=== PATIENT | male | born 1950 | race Caucasian/White ===

== ENCOUNTER → 2016-06-12 | Outpatient (CLI) | payer MEDICARE, BC | LOC: M SMT 13:31 | PROVIDERS: ATTEND Nurse Practitioner Women's Health | DX: R97.20 Elevated prostate specific antigen [PSA] (principal) ==

== ENCOUNTER → 2017-02-19 | Outpatient (REF) | payer MEDICARE, BC ==
[2017-02-19 14:09] LABS: CORTISOL AM 11.9 UG/DL (4.3-22.4)
[2017-02-21 00:07] LABS: Lyme Disease IgG/IgM Antibodie <0.91 ISR (0.00-0.90); Lyme Disease IgM Ab Quantitati <0.80 index (0.00-0.79)
== END ==
LOC: M LAB REF 12:51
PROVIDERS: ATTEND Family Medicine
DX: R53.83 Other fatigue (principal)

== ENCOUNTER → 2017-02-26 | Outpatient (CLI) | payer MEDICARE, BC | LOC: M SMT 09:23 | PROVIDERS: ATTEND Nurse Practitioner Women's Health | DX: R97.20 Elevated prostate specific antigen [PSA] (principal); Z85.46 Personal history of malignant neoplasm of prostate ==

== ENCOUNTER 2018-03-12 19:11 | Emergency (ER) | payer MEDICARE, BC ==
[2018-03-12] MEDS ORDERED: TROPICAMIDE 0.5% OPHTH SOLN 15 ML OD (20:15)
[2018-03-12] MEDS ORDERED: TETRACAINE 0.5% OPHTH SOLN 4ML OU (20:15)
[2018-03-12] MEDS ORDERED: PHENYLEPHRINE HCL 10 % OPHTH. SOL 5ML OD (20:15)
== END 2018-03-12 21:09 | disposition home or self-care (01) ==
LOC: M ED 19:11
DX: H43.811 Vitreous degeneration, right eye (principal); Z79.899 Other long term (current) drug therapy; Z86.69 Personal history of other diseases of the nervous system and sense organs
CPT/HCPCS: 99283

== ENCOUNTER → 2018-05-27 | Outpatient (REF) | payer MEDICARE, BC ==
[~2018-05-27] MED LIST: SYNT150T PO
== END ==
LOC: M SMT 13:13
PROVIDERS: ATTEND Nurse Practitioner Women's Health
DX: Z12.5 Encounter for screening for malignant neoplasm of prostate (principal)
CPT/HCPCS: 36415; G0103

== ENCOUNTER → 2019-03-07 | Outpatient (REF) | payer MEDICARE, BC | LOC: M LAB REF 17:07 | PROVIDERS: ATTEND Family Medicine | DX: E03.9 Hypothyroidism, unspecified (principal) ==

== ENCOUNTER → 2020-03-05 | Outpatient (CLI) | payer MEDICARE, BC ==
--- NOTE | 2020-03-05 15:57 | ECGEPIP ---
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
== END ==
LOC: M EKG 14:09
PROVIDERS: ATTEND Orthopaedic Surgery
DX: Z01.810 Encounter for preprocedural cardiovascular examination (principal)

== ENCOUNTER → 2020-03-09 | Outpatient (CLI) | payer MEDICARE, BC | LOC: M LABSMTC 09:52 | PROVIDERS: ATTEND Orthopaedic Surgery | DX: Z01.812 Encounter for preprocedural laboratory examination (principal); Z20.828 Contact with and (suspected) exposure to other viral communicable diseases ==

== ENCOUNTER → 2020-03-14 | Outpatient (REF) | payer MEDICARE, BC | LOC: M LAB REF 17:18 | PROVIDERS: ATTEND Orthopaedic Surgery | DX: L72.0 Epidermal cyst (principal) ==

== ENCOUNTER → 2020-10-03 | Outpatient (CLI) | payer MEDICARE, BC ==
--- NOTE | 2020-10-03 12:33 | REP ---
INDICATION: ABN THYROID FUNCTION TEST. COMPARISON: None. TECHNIQUE: Real-time sonographic evaluation of thyroid performed. FINDINGS: Right lobe of thyroid measures 4.4 x 1.5 x 1.5 cm, left lobe 3.5 x 1.4 x 1.5 cm. There is diffuse heterogeneous echotexture bilaterally. No discrete cystic or solid nodule is seen. IMPRESSION: Diffuse heterogeneous echotexture with no cystic or solid nodule. No thyromegaly. <Electronically signed by Tristen Hood > 10/03/20 [id number]
== END ==
LOC: M RAD 11:19
PROVIDERS: ATTEND Family Medicine
DX: R94.6 Abnormal results of thyroid function studies (principal)

== ENCOUNTER → 2020-10-25 | Outpatient (REF) | payer MEDICARE, BC | LOC: M LAB REF 12:21 | PROVIDERS: ATTEND Family Medicine | DX: E03.9 Hypothyroidism, unspecified (principal) ==

== ENCOUNTER → 2021-03-26 | Outpatient (REF) | payer MEDICARE, BC | LOC: M LAB REF 16:58 | PROVIDERS: ATTEND Family Medicine | DX: E03.9 Hypothyroidism, unspecified (principal) ==

== ENCOUNTER → 2021-04-25 | Outpatient (CLI) | payer MEDICARE, BC ==
[2021-05-01 21:07] LABS: FREE T4 BY DIALYSIS DIRECT 1.3 ng/dL (.); THRYOGLOBULIN ANTIBODIES (ATA) 2.4 IU/mL (0.0-0.9); THYROGLOBULIN RIA 44 ng/mL (.); THYROID STIMULATING IMMUNOGLOB 0.12 IU/L (0.00-0.55); TSH RECEPTOR ASSAY 1.62 IU/L (0.00-1.75)
== END ==
LOC: M PLALAB 11:36
PROVIDERS: ATTEND Internal Medicine Endocrinology, Diabetes & Metabolism
DX: R94.6 Abnormal results of thyroid function studies (principal)

== ENCOUNTER 2021-07-23 09:58 | Emergency (ER) | payer MEDICARE, BC ==
[~2021-07-23] VITALS: Ht 182.9 cm; Wt 86.4 kg
[2021-07-23] MEDS ORDERED: LEVO125T4 (10:13)
[2021-07-23] MEDS ORDERED: FAMO20TA5 (10:13)
[2021-07-23] MEDS ORDERED: NS 500 ML IV ONE (10:30)
[2021-07-23 10:41] LABS: BASO # 0.1 10^3/uL (0.0-0.2); BASO % 0.8 % (0.0-1.0); EOS # 0.4 10^3/uL (0.0-0.5); EOS % 5.4 % (0.0-3.0); HEMATOCRIT 43.7 % (42.0-52.0); LYMPH # 2.6 10^3/uL (1.5-5.0); LYMPH % 38.7 % (24.0-44.0); MEAN CORPUSCULAR HEMOGLOBIN 30.7 pg (27.0-33.0); MEAN CORPUSCULAR HGB CONC 34.3 g/dl (32.0-36.5); MEAN CORPUSCULAR VOLUME 89.5 fl (80.0-96.0); MONO # 0.6 10^3/uL (0.0-0.8); MONO % 8.3 % (2.0-8.0); NEUTROPHILS # 3.1 10^3/uL (1.5-8.5); NEUTROPHILS % 46.5 % (36.0-66.0); PLATELET COUNT, AUTOMATED 228 10^3/uL (150-450); RED BLOOD COUNT 4.88 10^6/uL (4.30-6.10); WHITE BLOOD COUNT 6.6 10^3/uL (4.0-10.0)
[2021-07-23 12:10] LABS: BLOOD UREA NITROGEN 17 MG/DL (7-18); CREATININE FOR GFR 1.08 MG/DL (0.70-1.30); GLOMERULAR FILTRATION RATE > 60.0 (>42); GLUCOSE, FASTING 105 MG/DL (70-100)
[2021-07-23 12:12] LABS: CALCIUM LEVEL 9.2 MG/DL (8.8-10.2); CARBON DIOXIDE LEVEL 25 mmol/L (20-29); CHLORIDE LEVEL 106 MEQ/L (98-107); FREE T4 2.36 NG/DL (0.76-1.46); MAGNESIUM LEVEL 2.3 MG/DL (1.8-2.4); POTASSIUM SERUM 4.6 MEQ/L (3.5-5.1); SODIUM LEVEL 137 MEQ/L (136-145)
[2021-07-23 13:58] LABS: MB/CK RELATIVE INDEX 1.97 (< OR =4)
[2021-07-23 14:10] VITALS: BP 162/89
== END 2021-07-23 14:22 | disposition home or self-care (01) ==
LOC: M ED 09:58
DX: R42 Dizziness and giddiness (principal); E78.5 Hyperlipidemia, unspecified; E07.9 Disorder of thyroid, unspecified; Z79.899 Other long term (current) drug therapy

== ENCOUNTER → 2021-07-29 | Outpatient (CLI) | payer MEDICARE, BC ==
[~2021-07-29] MED LIST changes: +FAMO20TA5; +LEVO125T4
== END ==
LOC: M WUC 15:58
PROVIDERS: ATTEND Internal Medicine Endocrinology, Diabetes & Metabolism
DX: R94.6 Abnormal results of thyroid function studies (principal); R97.20 Elevated prostate specific antigen [PSA]

== ENCOUNTER → 2021-07-29 | Outpatient (CLI) | payer MEDICARE, BC | LOC: M WUC 15:56 | PROVIDERS: ATTEND Nurse Practitioner Women's Health | DX: R97.20 Elevated prostate specific antigen [PSA] (principal) ==

== ENCOUNTER → 2021-09-16 | Outpatient (CLI) | payer MEDICARE, BC ==
[2021-09-16 16:18] LABS: FREE T4 2.08 NG/DL (0.76-1.46); THYROID STIMULATING HORMONE 10.4 uIU/ML (0.358-3.740); THYROXINE (T4) 6.3 UG/DL (4.5-12.0)
== END ==
LOC: M WUC 11:29
PROVIDERS: ATTEND Internal Medicine Endocrinology, Diabetes & Metabolism
DX: R94.6 Abnormal results of thyroid function studies (principal)

== ENCOUNTER → 2022-03-12 | Outpatient (REF) | payer MEDICARE, BC ==
[2022-03-12 16:43] LABS: FREE T4 2.51 NG/DL (0.76-1.46); THYROID STIMULATING HORMONE 13.9 uIU/ML (0.358-3.740)
== END ==
LOC: M LABWUC 12:27
PROVIDERS: ATTEND Internal Medicine Endocrinology, Diabetes & Metabolism
DX: R94.6 Abnormal results of thyroid function studies (principal)

== ENCOUNTER → 2022-04-14 | Outpatient (REF) | payer MEDICARE, BC | LOC: M LAB REF 16:53 | PROVIDERS: ATTEND Family Medicine | DX: E78.5 Hyperlipidemia, unspecified (principal) ==

== ENCOUNTER → 2022-07-18 | Outpatient (REF) | payer MEDICARE, BC | LOC: M SMT 13:32 | PROVIDERS: ATTEND Urology | DX: R97.20 Elevated prostate specific antigen [PSA] (principal) ==

== ENCOUNTER → 2022-11-03 | Outpatient (REF) | payer MEDICARE, BC | LOC: M LAB REF 10:15 | PROVIDERS: ATTEND Internal Medicine Endocrinology, Diabetes & Metabolism | DX: R94.6 Abnormal results of thyroid function studies (principal) ==

== ENCOUNTER → 2023-05-12 | Outpatient (REF) | payer MEDICARE, BC | LOC: M LABWUC 16:08 | PROVIDERS: ATTEND Internal Medicine Endocrinology, Diabetes & Metabolism | DX: R94.6 Abnormal results of thyroid function studies (principal) ==

== ENCOUNTER → 2023-11-17 | Outpatient (REF) | payer MEDICARE, BC | LOC: M LABWUC 16:16 | PROVIDERS: ATTEND Nurse Practitioner Family | DX: R94.6 Abnormal results of thyroid function studies (principal) ==

== ENCOUNTER → 2024-03-10 | Outpatient (REF) | payer MEDICARE, BC | LOC: M LAB REF 12:06 | PROVIDERS: ATTEND Family Medicine | DX: A69.20 Lyme disease, unspecified (principal) ==

== ENCOUNTER → 2024-08-26 | Outpatient (REF) | payer MEDICARE, BC | LOC: M LABWUC 17:17 | PROVIDERS: ATTEND Urology | DX: Z12.5 Encounter for screening for malignant neoplasm of prostate (principal) | CPT/HCPCS: 36415; G0103 ==

== ENCOUNTER → 2025-01-03 | Outpatient (CLI) | payer MEDICARE, BC | LOC: M WUC 15:14 | PROVIDERS: ATTEND Nurse Practitioner Family | DX: R94.6 Abnormal results of thyroid function studies (principal) ==